=== PATIENT | female | born 1995 | race Caucasian/White ===

== ENCOUNTER 2024-04-08 11:10 | Outpatient (OUT) | payer OTHER, SELFPAY ==
[2024-04-08 12:29] LABS: HCG Quantitative <1 mIU/mL
== END 2024-04-08 11:11 | disposition home or self-care (01) ==
LOC: LAB 11:16
PROVIDERS: PCP Family Medicine; Visit Provider Obstetrics & Gynecology
DX: R10.2 Pelvic and perineal pain (principal)
CPT/HCPCS: 36415; 84702

== ENCOUNTER 2024-04-21 09:32 | Outpatient (OUT) | payer OTHER, SELFPAY ==
--- NOTE | 2024-04-21 09:35 | US_ITS ---
[address] [address] Patient Name: LARISSA MCCORD MRN: [id number] date: 1995 Sex: F Assigned Patient Location: US Current Patient Location: Accession/Order Number: [id number] Exam Date: 04/21/2024 09:40 Report Date: 04/21/2024 10:36 At the request of: LATIA WOOD Procedure: US pelvis transvaginal EXAMINATION: US pelvis transvaginal HISTORY: Pelvic Pain R10.2 COMPARISON: No relevant comparison available. FINDINGS: The uterus is normal in size, contour and myometrial echotexture measuring 8.2 x 5.1 x 3.9 cm. Endometrium measures 4.5 mm, heterogeneous. The right ovary measures 2.1 x 1.9 x 1.8 cm. Normal color Doppler flow Left ovary measures 2.3 x 2.0 x 1.8 cm. Normal color and Doppler flow No free fluid US/US pelvis transvaginal IMPRESSION: Heterogeneous endometrium with scattered hyperdensities possibly representing calcifications, nonspecific Electronically authenticated by: LUC SOMERS Date: 04/21/2024 10:36
--- OUTSIDE RECORDS SUMMARY | 2024-04-21 09:42 | XMS_ITS | CCD ---
Author Organization [facility] [employer] [facility] Care Team Providers Care Waiter/Waitress Cafeteria Name Role Phone NATACHA, DR VINOD Nath Primary Care Unavailable RAMSEY ., DR ALVA Attending Unavailabl e KARASIK ., DR ALVA Consulting Unavailabl e KARASIK ., DR ALVA Admitting Unavaildarlene e NATACHA, DR VINOD Nath Primary Care Unavailable NATACHA, DR VINOD Nath Admitting Unavailable NATACHA, DR VINOD Nath Attending Unavailable NADZAFAR, DR VINOD Nath Consulting Unavailable LATIA WOOD Attending Unavailable Problems Problem Classification Problem Date Documented Date Episodic/Chronic Immunizations and screening for infectious disease (1 source) Encounter for screening for human papillomavirus (HPV); Translations: [ENC SCREENING HUMAN PAPILLOMAVIRUS] Onset: 02-17-2023 Episodic Other screening for suspected conditions (not mental disorders or infectious disease) (4 sources) Encounter for screening for malignant neoplasm of cervix; Translations: [ENC SCREENING MALIG NEOPLASM CERV] Onset: 02-11-2023 Episodic Results Test Name Value Interpretation Reference Range Facility PAP ACOG PANEL 2: 21 to 29on 02-19-2023 . . Normal [facility] Comment on above: Performed By: #### [id number] #### [facility] [address] [address] [address] Vinod Graham Age Gdln ACOG Testing - Normal [facility] Comment on above: Performed By: #### [id number] #### [facility] [address] [address] [address] Vinod Graham DIAGNOSIS: Comment [facility] Comment on above: Result Comment: NEGA TIVE FOR INTRAEPITHELIAL LESION OR MALIGNANCY. Performed By: #### [id number] #### [facility] [address] [place] [address] Dr. Vinod Graham Methodology: Comment Normal [facility] Comment on above: Result Comment: This liquid based ThinPrep(R) pap test was screened with the use of an image guided system. Performed By: #### [id number] #### [facility] [address] [place] [address] Dr. Vinod Graham Note: Comment Normal [facility] Comment on above: Result Comment: The Pap smear is a screening test designed to aid in the detection of premalignant and malignant conditions of the uterine cervix. It is not a diagnostic procedure and should not be used as the sole means of detecting cervical cancer. Both false-positive and false-negative reports do occur. . Performed By: #### [id number] #### [facility] [address] [place] [address] Dr. Vinod Graham Performed by: Comment Normal [facility] Comment on above: Result Comment: Dominique Apodaca, Search Strategist Performed By: #### [id number] #### [facility] [address] [place] [address] Dr. Vinod Graham Reflex Criteria: Comment Normal [facility] Comment on above: Result Comment: The HPV DNA reflex criteria were not met with this specimen result therefore, no HPV testing was performed. . Performed By: #### [id number] #### [facility] [address] [place] [address] Dr. Vinod Graham Specimen adequacy: Comment Normal [facility] Comment on above: Result Comment: Sati sfactory for evaluation. Endocervical and/or squamous metaplastic cells (endocervical component) are present. Areas of partially obscuring inflammatory exudate are present. Performed By: #### [id number] #### [facility] [address] [place] [address] Dr. Vinod Graham CBC AUTO DIFFon 09-13-2022 BASO # 0.1 103/ul Normal 0.0-0.1 [facility] Comment on above: Performed By: #### C BC #### [facility] [address] [place] [address] Dr. Vinod Graham Basophils/100 WBC (Bld) 0.8 % Normal 0.2-2.0 [facility] Comment on above: Performed By: #### C BC #### [facility] [address] [address] [address] Vinod Graham EO # 0.2 103/ul Normal 0.0-0.7 [facility] Comment on above: Performed By: #### C BC #### [facility] [address] [address] [address] Vinod Graham Eosinophils/100 WBC (Bld) 2.5 % Normal 0.9-7.0 [facility] Comment on above: Performed By: #### C BC #### [facility] [address] [place] [address] Dr. Vinod Graham Erythrocyte distribution width (RBC) [Ratio] 13.3 % Normal 11.0-15.0 [facility] Comment on above: Performed By: #### C BC #### [facility] [address] [place] [address] Dr. Vinod Graham Hematocrit (Bld) [Volume fraction] 43.7 % Normal 36.0-48.0 [facility] Comment on above: Performed By: #### C BC #### [facility] [address] [place] [address] Dr. Vinod Graham Hemoglobin (Bld) [Mass/Vol] 14.7 g/dL Normal 12.0-16.0 [facility] Comment on above: Performed By: #### C BC #### [facility] [address] [place] [address] Dr. Vinod Graham IG # 0.08 10e3/ul Critically high 0.00-0.03 The [facility] Comment on above: Performed By: #### C BC #### [facility] [address] [place] [address] Dr. Vinod Graahm IG % 0.8 % Critically high 0.0-0.5 [facility] Comment on above: Performed By: #### C BC #### [facility] [address] [place] [address] Dr. Vinod Graham LYMPH # 3.2 103/ul Normal 1.2-3.8 [facility] Comment on above: Performed By: #### C BC #### [facility] [address] [place] [address] Dr. Vinod Graham Lymphocytes/100 WBC (Bld) 33.1 % Normal 20.5-60.0 [facility] Comment on above: Performed By: #### C BC #### [facility] [address] [place] [address] Dr. Vinod Graham MANUAL DIFF REQ NO Normal [facility] Comment on above: Performed By: #### C BC #### [facility] [address] [place] [address] Dr. Vinod Graham MCH (RBC) [Entitic mass] 31.1 pg Normal 26.7-34.0 [facility] Comment on above: Performed By: #### C BC #### [facility] [address] [place] [address] Dr. Vinod Graham MCHC (RBC) [Mass/Vol] 33.6 g/dL Normal 29.9-35.2 [facility] Comment on above: Performed By: #### C BC #### [facility] [address] [place] [address] Dr. Vinod Graham MCV (RBC) [Entitic vol] 92.4 fL Normal 81.0-99.0 [facility] Comment on above: Performed By: #### C BC #### [facility] [address] [place] [address] Dr. Vinod Graham MONO # 0.8 103/ul Normal 0.3-0.8 [facility] Comment on above: Performed By: #### C BC #### [facility] [address] [place] [address] Dr. Vinod Graham Monocytes/100 WBC (Bld) 8.7 % Normal 1.7-12.0 [facility] Comment on above: Performed By: #### C BC #### [facility] [address] [place] [address] Dr. Vinod Graham NEUT # 5.2 103/ul Normal 1.4-6.5 [facility] Comment on above: Performed By: #### C BC #### [facility] [address] [place] [address] Dr. Vinod Graham Neutrophils/100 WBC (Bld) 54.1 % Normal 43.0-75.0 [facility] Comment on above: Performed By: #### C BC #### [facility] [address] [place] [address] Dr. Vinod Graham Platelet mean volume (Bld) [Entitic vol] 11.6 fL Normal 9.5-13.5 [facility] Comment on above: Performed By: #### C BC #### [facility] [address] [place] [address] Dr. Vinod Graham PLT 351 103/ul Normal 150-450 [facility] Comment on above: Performed By: #### C BC #### [facility] [address] [place] [address] Dr. Vinod Graham RBC 4.73 106/ul Normal 4.20-5.40 [facility] Comment on above: Performed By: #### C BC #### [facility] [address] [place] [address] Dr. Vinod Graham WBC 9.6 103/ul Normal 4.0-11.0 [facility] Comment on above: Performed By: #### C BC #### [facility] [address] [place] [address] Dr. Vinod Graham FREE T3on 09-13-2022 FREE T3 2.74 pg/mlL Normal 2.18-3.98 [facility] Comment on above: Performed By: #### B MP, LIVER, LIPID, TSH, FT3 #### [facility] [address] [place] [address] Dr. Vinod Graham FREE T4on 09-13-2022 Free T4 [Mass/Vol] 0.86 ng/dL Normal 0.76-1.46 [facility] Comment on above: Performed By: #### F T4 #### [facility] [address] [place] [address] Dr. Vinod Graham GLYCOHEMOGLOBIN A1Con 2021 ADA RECOMMENDATION SEE BELOW Normal [facility] Comment on above: Result Comment: ADA RECOMMENDED LIMIT 4.0 - 6.0 ADA THERAPEUTIC TARGET < 7.0 ACTION SUGGESTED > 7.0 Performed By: #### A 1C #### [facility] [address] [place] [address] Dr. Vinod Graham Glucose [Mass/Vol] 94 mg/dL Normal [facility] Comment on above: Performed By: #### A 1C #### [facility] [address] [place] [address] Dr. Vinod Graham HbA1c (Bld) [Mass fraction] 4.9 % Normal 4.5-6.2 [facility] Comment on above: Performed By: #### A 1C #### [facility] [address] [place] [address] Dr. Vinod Graham LIPID PROFILEon 09-13-2022 CHOL-HDL RATIO NORM SEE BELOW Normal [facility] Comment on above: Result Comment: 3.3 - 4.4 LOW RISK 4.4 - 7.1 AVERAGE RISK 7.1 - 11.0 MODERATE RISK >11.0 HIGH RISK Performed By: #### B MP, LIVER, LIPID, TSH, FT3 #### [facility] [address] [place] [address] Dr. Vinod Graham Cholesterol [Mass/Vol] 146 mg/dL Normal <=200 [facility] Comment on above: Performed By: #### B MP, LIVER, LIPID, TSH, FT3 #### [facility] [address] [place] [address] Dr. Vinod Graham Cholesterol in HDL [Mass/Vol] 31 mg/dL Critically low 40-60 [facility] Comment on above: Performed By: #### B MP, LIVER, LIPID, TSH, FT3 #### [facility] [address] [place] [address] Dr. Vinod Graham Cholesterol in LDL [Mass/Vol] 81.6 mg/dL Normal [facility] Comment on above: Performed By: #### B MP, LIVER, LIPID, TSH, FT3 #### [facility] [address] [address] [address] Vinod Graham Cholesterol.total/Cho lesterol in HDL [Mass ratio] 4.7 {ratio} Normal [facility] Comment on above: Performed By: #### B MP, LIVER, LIPID, TSH, FT3 #### [facility] [address] [address] [address] Vinod Graham HDL NORMAL > or = 60 mg/dl - LO W CARDIOVASCULAR RISK <40 mg/dl - HIGH CARDIOVASCULAR RISK Normal [facility] Comment on above: Performed By: #### B MP, LIVER, LIPID, TSH, FT3 #### [facility] [address] [address] [address] Vinod Graham LDL CALC NORMAL SEE BELOW Normal [facility] Comment on above: Result Comment: <100 mg/dl OPTIMAL 100 - 129 mg/dl NEAR OR ABOVE OPTIMAL 130 - 159 mg/dl BORDERLINE HIGH 160 - 189 mg/dl HIGH >190 mg/dl VERY HIGH Performed By: #### B MP, LIVER, LIPID, TSH, FT3 #### [facility] [address] [address] [address] Vinod Graham Triglyceride [Mass/Vol] 167 mg/dL Critically high <=150 [facility] Comment on above: Performed By: #### B MP, LIVER, LIPID, TSH, FT3 #### [facility] [address] [address] [address] Vinod Graham VLDL CALC 33.4 mg/dL Normal [facility] Comment on above: Performed By: #### B MP, LIVER, LIPID, TSH, FT3 #### [facility] [address] [address] [address] Vinod Graham LIVER PROFILEon 09-13-2022 Albumin [Mass/Vol] 4.1 g/dL Normal 3.4-5.0 [facility] Comment on above: Performed By: #### B MP, LIVER, LIPID, TSH, FT3 #### [facility] [address] [address] [address] Vinod Graham Albumin/Globulin [Mass ratio] 1.2 {ratio} Normal [facility] Comment on above: Performed By: #### B MP, LIVER, LIPID, TSH, FT3 #### [facility] [address] [place] [address] Dr. Vinod Graham ALP [Catalytic activity/Vol] 68 U/L Normal 46-116 [facility] Comment on above: Performed By: #### B MP, LIVER, LIPID, TSH, FT3 #### [facility] [address] [place] [address] Dr. Vinod Graham ALT [Catalytic activity/Vol] 19 U/L Normal 14-59 [facility] Comment on above: Performed By: #### B MP, LIVER, LIPID, TSH, FT3 #### [facility] [address] [place] [address] Dr. Vinod rGaham AST [Catalytic activity/Vol] 13 U/L Critically low 15-37 [facility] Comment on above: Performed By: #### B MP, LIVER, LIPID, TSH, FT3 #### [facility] [address] [place] [address] Dr. Vinod Graham BILI, CONJUGATED 0.1 mg/dL Normal 0.0-0.2 [facility] Comment on above: Performed By: #### B MP, LIVER, LIPID, TSH, FT3 #### [facility] [address] [place] [address] Dr. Vinod Graham Bilirubin [Mass/Vol] 0.3 mg/dL Normal 0.2-1.0 [facility] Comment on above: Performed By: #### B MP, LIVER, LIPID, TSH, FT3 #### [facility] [address] [place] [address] Dr. Vinod Graham Globulin (S) [Mass/Vol] 3.4 g/dL Normal [facility] Comment on above: Performed By: #### B MP, LIVER, LIPID, TSH, FT3 #### [facility] [address] [place] [address] Dr. Vinod Graham Protein [Mass/Vol] 7.5 g/dL Normal 6.4-8.2 [facility] Comment on above: Performed By: #### B MP, LIVER, LIPID, TSH, FT3 #### [facility] [address] [place] [address] Dr. Vinod Graham PROF CHEM 8 (BAS METB)on Anion gap [Moles/Vol] 13.2 mmol/L Normal [facility] Comment on above: Performed By: #### B MP, LIVER, LIPID, TSH, FT3 #### [facility] [address] [place] [address] Dr. Vinod Graham Calcium [Mass/Vol] 8.7 mg/dL Normal 8.5-10.1 [facility] Comment on above: Performed By: #### B MP, LIVER, LIPID, TSH, FT3 #### [facility] [address] [place] [address] Dr. Vinod Graham Chloride [Moles/Vol] 106 mmol/L Normal 98-107 [facility] Comment on above: Performed By: #### B MP, LIVER, LIPID, TSH, FT3 #### [facility] [address] [place] [address] Dr. Vinod Graham CO2 [Moles/Vol] 23.4 mmol/L Normal 21.0-32.0 [facility] Comment on above: Performed By: #### B MP, LIVER, LIPID, TSH, FT3 #### [facility] [address] [place] [address] Dr. Vinod Graham Creatinine [Mass/Vol] 0.62 mg/dL Normal 0.55-1.02 [facility] Comment on above: Performed By: #### B MP, LIVER, LIPID, TSH, FT3 #### [facility] [address] [place] [address] Dr. Vinod Graham EGFR-AF ISRAELI >60 Normal >=60 [facility] Comment on above: Performed By: #### B MP, LIVER, LIPID, TSH, FT3 #### [facility] [address] [place] [address] Dr. Vinod Graham EGFR-NON AF ISRAELI >60 Normal >=60 [facility] Comment on above: Performed By: #### B MP, LIVER, LIPID, TSH, FT3 #### [facility] [address] [address] [address] Vinod Graham Glucose [Mass/Vol] 97 mg/dL Normal 74-106 [facility] Comment on above: Performed By: #### B MP, LIVER, LIPID, TSH, FT3 #### [facility] [address] [address] [address] Vinod Graham Potassium [Moles/Vol] 3.6 mmol/L Normal 3.5-5.1 [facility] Comment on above: Performed By: #### B MP, LIVER, LIPID, TSH, FT3 #### [facility] [address] [address] [address] Vinod Graham Sodium [Moles/Vol] 139 mmol/L Normal 136-145 [facility] Comment on above: Performed By: #### B MP, LIVER, LIPID, TSH, FT3 #### [facility] [address] [place] [address] Dr. Vinod Graham Urea nitrogen [Mass/Vol] 7.0 mg/dL Normal 7.0-18.0 [facility] Comment on above: Performed By: #### B MP, LIVER, LIPID, TSH, FT3 #### [facility] [address] [place] [address] Dr. Vinod Graham Urea nitrogen/Creatinine [Mass ratio] 11.3 mg/mg Normal [facility] Comment on above: Performed By: #### B MP, LIVER, LIPID, TSH, FT3 #### [facility] [address] [place] [address] Dr. Vinod Graham TSHon 09-13-2022 TSH 0.740 uIU/mL Normal 0.358-3.740 [facility] Comment on above: Performed By: #### B MP, LIVER, LIPID, TSH, FT3 #### [facility] [address] [place] [address] Dr. Vinod Graham Encounters Encounter Date Encounter Type Care Provider Facility Start: 04-15-2024 End: 04-15-2024 ambulatory LATIA ISRAEL Not Available Start: 04-08-2024 End: 04-08-2024 ambulatory LATIA ISRAEL Not Available Start: 02-11-2023 End: 02-11-[address] VINOD MANZANO Facility:[facility] Start: 09-16-2022 Encounter for genera l adult medical examination without abnormal findings DR VINOD MANZANO [facility] Start: 09-13-2022 End: 09-14-[address] VINOD MANZANO Facility:[facility] Start: 09-13-2022 End: 09-14-2022 Encounter for general adult medical examination without abnormal findings DR VINOD MANZANO Facility:[facility] Payers Date Payer Category Payer Medicaid [id number] 1995 Unknown [id number] 2.16.84 [id number] 1995 Unknown [id number] 2.16.84 [id number] 1995 Unknown [id number] 2.16.84 [id number] 1995 Unknown [id number] 2.16.84 [id number] 1959 Unknown [id number] Summary Purpose Family History No Family History Records FoundNo Family History Records Found Advance Directives No Advanced Directives Records FoundNo Advanced Directives Records Found Additional Source Comments INFORMATION SOURCE (unrecogn ized section and content) DATE CREATED AUTHOR 02/19/2023 [facility] DATE CREATED AUTHOR AUTHOR'S ORGANIZ ATION 04/18/2024 [facility] EPIC FOR RECORDS PERTAINING TO PATIENTS WHO ARE OR HAVE BEEN ENROLLED IN A CHEMICAL DEPENDENCY/SUBSTANCEABUSE PROGRAM, SOME INFORMATION MAY BE OMITTED. This clinical summary was aggregated from multiple sources. Caution should be exercised in using it in the provision of clinical care. This summary normalizes information from multiple sources, and as a consequence, information in this document may materially change the coding, format and clinical context of patient data. In addition, data may be omitted in some cases. CLINICAL DECISIONS SHOULD BE BASED ON THE PRIMARY CLINICAL RECORDS. [facility] [employer] [facility]. provides no warranty or guarantee of the accuracy or completeness of information in this document.
== END 2024-04-21 09:33 | disposition home or self-care (01) ==
LOC: US 09:32
PROVIDERS: PCP Family Medicine; Visit Provider Obstetrics & Gynecology
DX: R10.2 Pelvic and perineal pain (principal)
CPT/HCPCS: 76830